=== PATIENT | female | born 1950 | race Hispanic/Latino ===

== ENCOUNTER 2024-01-16 12:33 | Emergency (ER) | payer OTHER ==
[~2024-01-16] VITALS: Ht 160 cm; Wt 90.7 kg
[2024-01-16 12:35] VITALS: BP 141/72; PULSE 79; RESP 16
[2024-01-16] MEDS: DIPH,PERTUSS(ACELL),TET VAC/PF 0.5 ML VIAL IM ONE (13:37)
== END 2024-01-16 16:14 | disposition home or self-care (01) ==
LOC: EDH 12:33
DX: S92.352A Displaced fracture of fifth metatarsal bone, left foot, initial encounter for closed fracture (principal); S80.211A Abrasion, right knee, initial encounter; I10 Essential (primary) hypertension; E78.00 Pure hypercholesterolemia, unspecified; W01.0XXA Fall on same level from slipping, tripping and stumbling without subsequent striking against object, initial encounter; Y93.89 Activity, other specified; Y92.89 Other specified places as the place of occurrence of the external cause; Y99.8 Other external cause status
CPT/HCPCS: 73610; 73630; 90471; 90715

== ENCOUNTER 2024-09-27 08:09 | Emergency (ER) | payer OTHER ==
[~2024-09-27] VITALS: Ht 160 cm; Wt 88.5 kg
--- NOTE | 2024-09-27 08:48 | ERN ---
ED Note History of Present Illness Stated Complaint: UTI Chief Complaint: UTI without Fever Time Seen by MD: 08:30 Dictation: Patient is a 74 year old female with a past medical history of hypertension, hyperlipidemia who is here for a UTI. She states dysuria began yesterday along with some discomfort in the left abdomen. She denies any fever, chills, nausea, vomiting or chest pain. She is not on any antibiotics currently. Allergies: Coded Allergies: No Known Drug Allergies (Unverified Allergy, Unknown, 01/16/24) Home Meds Active Scripts Phenazopyridine HCl (Pyridium) 100 Mg Tab, 1 TAB PO TID for urinary discomfort for 3 Days, #9 TAB 0 Refills Prov:NIKKY AU MD 09/27/24 Cephalexin Monohydrate (Keflex) 500 Mg Cap, 1 CAP PO BID for 10 Days, #20 CAP 0 Refills Prov:NIKKY AU MD 09/27/24 Past Medical History Past Medical History: High Cholesterol, Hypertension, UTI Surgical History: None Review of System Dictation Constitutional-no chills, weight loss/gain, fever Eyes-no injury, pain, redness and discharge ENT-no injury, pain, swelling Cardiovascular no chest pain, palpitations, edema Respiratory no shortness of breath, cough, wheezing Abdomen/GI-no abdominal pain, diarrhea, constipation, vomiting, nausea. Slight discomfort on left Back no injury and pain Genitourinary no injury, bleeding and discharge. Positive for dysuria Musculoskeletal/extremities no injury, deformity Skin no rash, discoloration Neuro-no headache, weakness, numbness, tingling, seizures, tremors Psych-no suicidal ideation, homicidal ideation, hallucinations, depression, anxiety, memory loss Initial Vital Sign VS Vital Signs Date Time Temp Pulse Resp B/P (MAP) Pulse Ox O2 Delivery O2 Flow Rate FiO2 09/27/24 08:09 98.8 79 20 129/68 Room Air 0 09/27/24 10:14 99 21 Physical Exam Dictation VITAL SIGNS: Reviewed. GENERAL APPEARANCE: Alert, oriented x3, no acute distress, obese. HEAD AND FACE: Non-traumatic. EYES: PERRL, pink conjunctivas, eyelid no trauma, anterior chamber clear. EARS: Pinnas intact and no signs of trauma or erythema. Ear canals clear and no discharge. TMs no erythema. NOSE: No discharge, no bleeding. OROPHARYNX: Mouth normal, teeth no caries, tongue pink. Pharynx clear, no erythema. Tonsils no exudates, no abscesses noted. Mucous membrane moist. NECK: Supple, non-tender, no thyromegaly, no masses, no JVD, no bruits. BREAST: Deferred. CHEST: No tenderness, no crepitus, no paradoxical movement, no retractions. LUNGS: Clear, well-ventilated, symmetric, no rales, no wheezing, no rhonchi, no stridor, good breath sounds bilaterally. HEART: Regular rate, regular rhythm, no murmur, no gallops. VASCULAR: No peripheral edema. ABDOMEN: Soft, positive bowel sounds, nondistended, no guarding, nontender, no rebound, no masses no hepatomegaly, no splenomegaly, no Becerra's sign, no hernias. RECTAL: Swelling, lesion, possible pilonidal cyst GENITAL: Deferred. NEUROLOGICAL: Normal speech, gross motor function intact, gross sensory function intact. MUSCULOSKELETAL: Neck nontender, full range of motion, back nontender, full range of motion. EXTREMITIES: Nontender, full range of motion. SKIN: Color pink, dry, no turgor, no rash, no lacerations, no abrasions, no contusions. LYMPHATICS: Deferred. Results (Laboratory/Radiology) Laboratory/Radiology Laboratory Tests Test 09/27/24 08:20 Urine Color LIGHT-YELLOW (YELLOW) Urine Appearance CLEAR (CLEAR) Urine pH 5.5 (5.0-8.0) Urine Specific [place] 1.004 (1.001-1.031) Urine Protein NEGATIVE mg/dL (NEGATIVE) Urine Glucose (UA) NEGATIVE mg/dL (NEGATIVE) Urine Ketones NEGATIVE mg/dL (NEGATIVE) Urine Occult Blood +- (TRACE) (NEGATIVE) H Urine Nitrate NEGATIVE (NEGATIVE) Urine Bilirubin NEGATIVE mg/dL (NEGATIVE) Urine Urobilinogen 0.2 mg/dL (0.2-1.0) Urine Leukocyte Esterase 500 Claudia/uL (NEGATIVE) H Urine RBC 0-1 /HPF (0-1) Urine WBC 26-50 /HPF (0-1) H Urine WBC Clumps (Auto) FEW /HPF (0-1) Urine Squamous Epithelial Cells RARE /HPF (0-2) Urine Non-Squamous Epithelial Cells <1 /HPF (0-2) Urine Bacteria FEW /HPF (None Seen) ED Course ED Course Orders Procedure Category Date Status Time Urinalysis Profile LAB 09/27/24 Complete 08:22 Phenazopyridine Hcl PHA 09/27/24 Complete 200 Mg Tab (Pyridium 08:30 Culture Urine [place] 09/27/24 Complete 09:33 Current Medications Medications (Trade) Dose Ordered Sig/[place] Route PRN Reason Start Time Stop Time Status Last Admin Dose Admin Phenazopyridine HCl (PYRIdium HCL 200 MG TAB) 200 mg ONCE ONCE PO 09/27/24 08:30 09/27/24 08:31 DC 09/27/24 09:12 Vital Signs Date Time Temp Pulse Resp B/P (MAP) Pulse Ox O2 Delivery O2 Flow Rate FiO2 09/27/24 10:14 98.8 74 17 112/62 99 Room Air* 0 21 09/27/24 08:09 98.8 79 20 129/68 Room Air 0 Medical Decision Making MDM MDM INITIAL IMPRESSION Initial history and physical concerning for UTI Contributing medical problems: I have reviewed the triage nursing notes and vital signs. Initial plan: UA DATA REVIEW I have reviewed additional NN, repeat VS, and monitoring where indicated. Heart rate, blood pressure, and O2 saturation are acceptable. ED COURSE Interventions: Pyridime Reassessment: DISPOSITION Final diagnostic impression: UTI I discussed my findings, clinical impression and treatment recommendations with the patient. My final plan for disposition was made based upon -mild risk of complications and potential morbidity of the patient's condition. -Discussion with the patient regarding management options. Patient will be discharged and advised to follow up with PCP as needed DX & DISP Disposition: Discharge Departure Impression: Primary Impression: UTI (urinary tract infection) Condition: Stable Scripts Phenazopyridine HCl (Pyridium) 100 Mg Tab 1 TAB PO TID for urinary discomfort for 3 Days, #9 TAB 0 Refills Prov: NIKKY AU MD 09/27/24 Cephalexin Monohydrate (Keflex) 500 Mg Cap 1 CAP PO BID for 10 Days, #20 CAP 0 Refills Prov: NIKKY AU MD 09/27/24 Additional Instructions: Drink plenty of water and other fluids to help flush out bacteria dilute your urine. Use a heating pad or take a warm bath to ease discomfort. Empty her bladder as soon as you feel the urge to help prevent bacteria from accumulating. If if you experience fever, chills, nausea, or vomiting , contact your health care provider. FOLLOW-UP WITH PRIMARY CARE PROVIDER IN 1 TO 2 DAYS. TAKE MEDICATIONS DIRECTED HERE IN THE EMERGENCY ROOM. OKAY TO CONTINUE HOME MEDICATIONS UNLESS OTHERWISE DISCUSSED DURING YOUR VISIT IN THE EMERGENCY ROOM TODAY. RETURN TO YOUR NEAREST EMERGENCY ROOM IF SYMPTOMS WORSEN OR IF THERE IS NO IMPROVEMENT. CALL 911 IF YOU NEED IMMEDIATE ASSISTANCE. TAKE TYLENOL [id number] NEEDED AND IF NO CONTRAINDICATIONS ARE PRESENT. INCREASE ORAL HYDRATION. A WOUND CULTURE OR URINE CULTURE WAS ORDERED HERE IN THE EMERGENCY ROOM DEPARTMENT PLEASE FOLLOW-UP WITH PRIMARY CARE PROVIDER AND ADVISE THEM TO GET REPEAT PORTS FROM OUR FACILITY. IF YOU HAD ANY KIRSTEN WRAP/SPLINTS THAT WERE APPLIED HERE, PLEASE DO NOT REMOVE THEM UNTIL YOU SEE YOUR PRIMARY CARE OR SPECIALTY. Referrals: SELF,REFERRAL (PCP) Time of Disposition: 09:47 I have reviewed I have reviewed the case I WAS PRESENT AND PARTICIPATED IN THE CARE OF THIS PATIENT ALONGSIDE WITH THE RESIDENT PHYSICIAN. I HAVE REVIEWED AND PERSONALLY MADE AND APPROVED THE MANAGEMENT PLAN THAT IS DOCUMENTED IN THE NOTE BY MYSELF WITH THE RESIDENT PHYSICIAN. I ACKNOWLEDGED FOR RESPONSIBILITY FOR THE PATIENT'S MANAGEMENT PLAN. I have examined patient NIKKY AU MD Sep 27, 2024 08:48 PABLO HERRERA MD Sep 30, 2024 07:58
[2024-09-27] MEDS: PHENAZOpyridine HCL 200 MG TAB 200 MG TABLET PO ONE (09:12)
--- NOTE | 2024-09-27 09:13 | NUR ---
ASSUMED CARE AT THIS TIME
[2024-09-27 09:28] LABS: APPEARANCE,URINE CLEAR (CLEAR); BILIRUBIN,URINE NEGATIVE (NEGATIVE); COLOR,URINE LIGHT-YELLOW (YELLOW); GLUCOSE, URINE (UA) NEGATIVE (NEGATIVE); KETONES,URINE NEGATIVE (NEGATIVE); LEUKOCYTE ESTERASE ,URINE 500 Leu/uL (NEGATIVE); NITRATE,URINE NEGATIVE (NEGATIVE); PH,URINE 5.5 (5.0-8.0); PROTEIN,URINE NEGATIVE (NEGATIVE); UROBILINOGEN,URINE 0.2 mg/dL (0.2-1.0)
[2024-09-27 09:33] LABS: ADD UA MICROSCOPIC YES
[2024-09-27 09:36] LABS: BACTERIA,URINE FEW /HPF (None Seen); MUCUS,URINE RARE LPF (None Seen); NON-SQUAMOUS EPITHELIAL CELL <1 /HPF (0-2); RBC,URINE 0-1 /HPF (0-1); SQUAMOUS EPITHELIAL CELL,UR RARE /HPF (0-2); WBC CLUMP FEW /HPF (0-1); WBC,URINE 26-50 /HPF (0-1)
[2024-09-27] MEDS ORDERED: CEPH500B PO (09:47)
[2024-09-27] MEDS ORDERED: PHEN-846 PO (09:52)
[2024-09-27 10:14] VITALS: BP 112/62; PULSE 74; RESP 17; TEMP 98.8; O2SAT 99
== END 2024-09-27 10:14 | disposition home or self-care (01) ==
LOC: EDH 08:09
DX: N39.0 Urinary tract infection, site not specified (principal); E78.00 Pure hypercholesterolemia, unspecified; I10 Essential (primary) hypertension
CPT/HCPCS: 81001; 87086; 87186; 99283